=== PATIENT | female | born 1970 | race Caucasian/White ===

== ENCOUNTER 2018-08-13 10:59 | Emergency (ER) | payer SELFPAY ==
[2018-08-13 11:08] VITALS: TEMP 97.7
[2018-08-13 11:22] LABS: BASO # 0.1 K/uL (0.0-0.2); BASO % 1.1 % (0.0-2.0); EOS # 0.1 K/uL (0.0-0.7); EOS % 0.7 % (0.0-4.0); HEMOGLOBIN 11.6 g/dL (11.0-16.0); MEAN CELL VOLUME 84.1 fL (81.0-99.0); MEAN CORPUSCULAR HEMOGLOBIN 28.5 pg (27.0-31.0); MEAN CORPUSCULAR HGB CONC 33.9 g/dL (33.0-37.0); MEAN PLATELET VOLUME 8.8 fL (7.2-11.7); MONO # 0.4 K/uL (0.0-0.8); MONO % 4.4 % (0.0-10.0); NEUT # 4.8 K/uL (1.8-7.0); NEUT % 57.8 % (50.0-75.0); RBC 4.07 Mil/uL (3.80-5.20); RED CELL DISTRIBUTION WIDTH 14.4 % (11.5-14.5); WHITE BLOOD COUNT 8.4 K/uL (4.8-10.8)
[2018-08-13 11:40] LABS: BLOOD UREA NITROGEN 9 mg/dL (7-17); CALCIUM 9.5 mg/dl (8.6-10.4); GFR NON-AFRICAN AMERICAN > 60
[2018-08-13 11:55] LABS: INR 1.1; PROTHROMBIN TIME 12.3 SECONDS (9.7-12.2)
[2018-08-13 11:56] VITALS: RESP 20
[2018-08-13] MEDS ORDERED: niCARdipine IV 25 MG in Sodium Chloride 0.9% 240 ML IV SCH (12:00)
[2018-08-13] MEDS ORDERED: levETIRAcetam 1,000 MG in Sodium Chloride 0.9% 100 ML IVPB SCH (12:00)
--- NOTE | 2018-08-13 12:01 | CT ---
Date of service: 08/13/2018 PROCEDURE: CT HEAD WITHOUT CONTRAST. HISTORY: Headache COMPARISON: No prior study available for comparison TECHNIQUE: Axial computed tomography images were obtained through the head/brain without intravenous contrast. Radiation dose: Total exam DLP = 1109.69 mGy-cm. This CT exam was performed using one or more of the following dose reduction techniques: Automated exposure control, adjustment of the mA and/or kV according to patient size, and/or use of iterative reconstruction technique. FINDINGS: HEMORRHAGE: The current study reveals a moderately large amount of subarachnoid hemorrhage within the basilar cisterns extending into the lateral fissures left greater than right as well as left sylvian fissure. The bulk of the hemorrhage is consistent with aneurysm rupture likely located in the anterior communicating artery region or less likely the left MCA trifurcation. Formal four-vessel catheter angiogram recommended and emergent neurosurgical consultation. BRAIN: Mild diffuse cerebral edema with diminished ventricular size and subtle indistinct appearance of the corticomedullary junction. VENTRICLES: Very subtle dilatation of the temporal horns suggesting early mild hydrocephalus. CALVARIUM: There are no acute calvarial fractures. PARANASAL SINUSES: Unremarkable as visualized. No significant inflammatory changes. MASTOID AIR CELLS: Unremarkable as visualized. No inflammatory changes. OTHER FINDINGS: None. IMPRESSION: Diffuse subarachnoid hemorrhage within the basilar cisterns with the bulk of the hemorrhage located in the anterior inferior interhemispheric fissure and left lateral/sylvian fissures. 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 Formal four-vessel catheter catheter angiogram recommended. Emergent neurosurgical consultation also suggested note these findings were discussed with Dr. Jones at approximately 11:45 a.m. with written down and read back verification.. Mild diffuse cerebral edema suggesting developing vasospasm with mild dilatation of the temporal horn suggesting early hydrocephalus
[2018-08-13 12:37] VITALS: BP 132/74; PULSE 71; O2SAT 98
--- NOTE | 2018-08-13 13:02 | C.PDOC ---
History Of Present Illness 48-year-old female presents to the ED for evaluation of a headache which had sudden onset around 1 hour [employer]. Patient states she was shopping when she suddenly developed a headache. Patient states the pain radiated down to her neck, and she had to sit down because of the pain. Patient also reports some blurry vision. Patient denies dizziness, syncope, and states she has never experienced similar symptoms in the past. Time Seen by Provider: 08/13/18 11:04 Chief Complaint (Nursing): Headache History Per: Patient History/Exam Limitations: no limitations Onset/Duration Of Symptoms: Hrs Current Symptoms Are (Timing): Still Present Quality: Aching, "Pain" Associated Symptoms: Blurred Vision Additional History Per: Patient Past Medical History Reviewed: Historical Data, Nursing Documentation, Vital Signs Vital Signs: Last Vital Signs Temp 97.7 F 08/13/18 11:05 Pulse 71 08/13/18 12:34 Resp 20 08/13/18 12:34 BP 132/74 08/13/18 12:34 Pulse Ox 98 08/13/18 12:34 - Medical History PMH: No Chronic Diseases Surgical History: No Surg Hx Family History: States: Unknown Family Hx - Social History Hx Alcohol Use: No Hx Substance Use: No - Immunization History Hx Tetanus Toxoid Vaccination: No Hx Influenza Vaccination: No Hx Pneumococcal Vaccination: No Review Of Systems Eyes: Positive for: Other (blurry vision ) Neurological: Positive for: Headache, Dizziness Physical Exam - Physical Exam Appears: Non-toxic, No Acute Distress, Other (uncomfortable, clutching her head ) Skin: Normal Color, Warm, Dry Head: Atraumatic, Normacephalic Eye(s): bilateral: PERRL, EOMI Oral Mucosa: Moist Neck: Supple Chest: Symmetrical, No Deformity, No Tenderness Cardiovascular: Rhythm Regular, No Murmur Respiratory: Normal Breath Sounds, No Rales, No Rhonchi, No Wheezing Extremity: Normal ROM, Capillary Refill (less than 2 seconds ) Neurological/Psych: Oriented x3, Normal Speech, Normal Cognition ED Course And Treatment - Laboratory Results Result Diagrams: 08/13/18 11:19 08/13/18 11:19 ECG: Interpreted By Ok ECG Rhythm: Sinus Rhythm, Nonspecific Changes (TWI III, V3-V6) Interpretation Of ECG: normal axis Rate From EC O2 Sat by Pulse Oximetry: 98 (on RA) Pulse Ox Interpretation: Normal - CT Scan/US CT Head Other Rad Studies (CT/US): Read By Radiologist, Radiology Report Reviewed CT/US Interpretation: Date of service: 08/13/2018. PROCEDURE: CT HEAD WITHOUT CONTRAST. HISTORY: Headache. COMPARISON: No prior study available for comparison. TECHNIQUE: Axial computed tomography images were obtained through the head/brain without intravenous contrast. Radiation dose: Total exam DLP = 1109.69 mGy-cm. This CT exam was performed using one or more of the following dose reduction techniques: Automated exposure control, adjustment of the mA and/or kV according to patient size, and/or use of iterative reconstruction technique. FINDINGS: HEMORRHAGE: The current study reveals a moderately large amount of subarachnoid hemorrhage within the basilar cisterns extending into the lateral fissures left greater than right as well as left sylvian fissure. The bulk of the hemorrhage is consistent with aneurysm rupture likely located in the anterior communicating artery region or less likely the left MCA trifurcation. Formal four-vessel catheter angiogram recommended and emergent neurosurgical consultation. BRAIN: Mild diffuse cerebral edema with diminished ventricular size and subtle indistinct appearance of the corticomedullary junction. SONAM TRICLES: Very subtle dilatation of the temporal horns suggesting early mild hydrocephalus. CALVARIUM: There are no acute calvarial fractures. PARANASAL SINUSES: Unremarkable as visualized. No significant inflammatory changes. MASTOID AIR CELLS: Unremarkable as visualized. No inflammatory changes. OTHER FINDINGS: None. IMPRESSION: Diffuse subarachnoid hemorrhage within the basilar cisterns with the bulk of the hemorrhage located in the anterior inferior interhemispheric fissure and left lateral/sylvian fissures. 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 Formal four-vessel catheter catheter angiogram recommended. Emergent neurosurgical consultation also suggested note these findings were discussed with Dr. Jones at approximately 11:45 a.m. with written down and read back verification.. Mild diffuse cerebral edema suggesting developing vasospasm with mild dilatation of the temporal horn suggesting early hydrocephalus Critical Care Time - Critical Care Note Total Time (in mins): 45 Documented critical care: time excludes all time spent performing seperately billable procedures. Medical Decision Making Medical Decision Making: Progress: Bloodwork, CTA Head/Neck, CT Head ordered and reviewed. Zofran IVP, Keppra IVP, Cardene IV administered. Patient seen and examined. CT head w/o contrast, CTA head/neck ordered upon arrival. Patient to CT. Upon return for CT patient vomited. 4mg zofran ivp ordered. Radiology called informing of findings- SAH likely due to ruptured ACOM aneur ysm. CTA deferred as this would delay transfer to higher level of care. Contacted transfer center at [facility] for transfer. [facility] contacted for transport. 1158- Case discussed with Dr. Arroyo, neurosurgery at [facility]. Accepts patient for transfer. Would like 1g keppra given and cardene gtt started to keep BP around 140 systolic. Current BP 163 systolic. Meds ordered. Cardene gtt started at 10mg/hr, BP 181 systolic at this time. Results discussed with family including need for transfer. Family verbalizes agreement. 1205- Case discussed with Erica Meade, ED PA at [facility]. Accepts patient for ED-ED transfer. 1231- [facility] in ED to transport patient. Patient still awake and alert, f ollowing commands, with no neurological deficits, but appears uncomfortable. Disposition - Disposition Disposition: Trans to Other Acute Care Hosp Disposition Time: 11:58 Condition: SERIOUS Forms: [facility] (Mongolian) - Clinical Impression Clinical Impression: Subarachnoid hemorrhage - Scribe Statement The provider has reviewed the documentation as recorded by the Scribe (Minnie calreo) Provider Attestation: All medical record entries made by the Scribe were at my direction and personally dictated by me. I have reviewed the chart and agree that the record accurately reflects my personal performance of the history, physical exam, medical decision making, and the department course for this patient. I have also personally directed, reviewed, and agree with the discharge instructions and disposition.
--- NOTE | 2018-08-16 20:47 | CARD ---
APPROVED REPORT Date of service: 08/13/2018 EKG Measurement Heart [id number] <Conclusion> Normal sinus rhythm Possible Left atrial enlargement Nonspecific T wave abnormality Abnormal ECG
== END 2018-08-13 12:44 | disposition short-term general hospital (02) ==
LOC: C.ER 10:59
DX: I60.9 Nontraumatic subarachnoid hemorrhage, unspecified (principal)
CPT/HCPCS: 70450; 80048; 82948; 83036; 85025; 85610; 85730; 86850; 86900; 93005; 96365; 96375; 99285; J1953; J2405